=== PATIENT | male | born 1985 | race Caucasian/White ===

== ENCOUNTER 2016-12-08 09:34 | Emergency (ER) | payer OTHER ==
[~2016-12-08] VITALS: Ht 180.3 cm; Wt 141.7 kg
[~2016-12-08 09:34] MED LIST: ATENOLOL25 PO
[2016-12-08 09:49] VITALS: BP 140/97
== END 2016-12-08 11:12 | disposition home or self-care (01) ==
LOC: ED 09:34
DX: L60.0 Ingrowing nail (principal); I10 Essential (primary) hypertension; G43.909 Migraine, unspecified, not intractable, without status migrainosus
CPT/HCPCS: J2001

== ENCOUNTER 2017-04-24 09:37 | Emergency (ER) | payer SELFPAY ==
[~2017-04-24] VITALS: Ht 180.3 cm; Wt 147.6 kg
[2017-04-24 10:35] LABS: BASOPHIL % 0.3 % (0-2); PLATELET COUNT 212 x10^3mcL (130-400); RED CELL DISTRIBUTION WIDTH 12.7 % (11.5-14.5)
[2017-04-24 11:02] LABS: ALKALINE PHOSPHATASE 79 U/L (46-116); ALT/SGPT 62 U/L (16-63); AST/SGOT 39 U/L (15-37); BILIRUBIN TOTAL 0.4 mg/dL (0.20-1.00); CALCIUM 8.4 mg/dL (8.5-10.1); CARBON DIOXIDE 29.7 mmol/L (21-32); CHLORIDE SERUM 103 mmol/L (98-107); CREATININE SERUM 0.8 mg/dL (0.7-1.3); GFR1 > 60 mL/min; GLUCOSE SERUM 88 mg/dL (74-106); LIPASE 137 IU/L (73-393); POTASSIUM SERUM 4.1 mmol/L (3.5-5.1); SODIUM SERUM 137 mmol/L (136-145); TOTAL PROTEIN, SERUM 7.7 g/dL (6.4-8.2)
[2017-04-24 11:03] LABS: ALBUMIN 3.3 g/dL (3.4-5.0)
[2017-04-24 11:11] LABS: microscopic required? YES; urine erythrocyte TRACE (NEGATIVE)
[2017-04-24 12:05] VITALS: BP 111/66
== END 2017-04-24 12:05 | disposition home or self-care (01) ==
LOC: ED 09:37
PROVIDERS: Emergency Medicine
DX: R10.9 Unspecified abdominal pain (principal); I10 Essential (primary) hypertension; G43.909 Migraine, unspecified, not intractable, without status migrainosus; Z88.0 Allergy status to penicillin; Z88.1 Allergy status to other antibiotic agents
CPT/HCPCS: J1885; J7030